=== PATIENT | male | born 1970 | race Caucasian/White ===

== ENCOUNTER 2020-03-28 06:04 | Day surgery (SDC) | payer BC ==
[2020-03-28 10:11] VITALS: BMI 27.9
[2020-03-28] MEDS ORDERED: PROPOFOL 20 ML ONE (13:06)
[2020-03-28] MEDS ORDERED: MIDAZOLAM HCL 2 MG/2 ML SINGLE DOSE VIAL ONE (13:06)
[2020-03-28] MEDS ORDERED: LIDOCAINE HCL/PF 2% SDV 5ML VIAL ONE (14:00)
[2020-03-28 16:53] VITALS: TEMP 97.8
[2020-03-28 16:58] VITALS: BP 144/88; PULSE 90
== END 2020-03-28 15:45 | disposition home or self-care (01) ==
LOC: JASU-SURG 06:04
PROVIDERS: ATTEND Urology
PROC: 0TF4XZZ Fragmentation in Left Kidney Pelvis, External Approach (ICD-10-PCS; principal; 2020-03-28 12:00)
DX: N20.0 Calculus of kidney (principal)
CPT/HCPCS: 82962